=== PATIENT | female | born 1980 | race African-American/Black ===

== ENCOUNTER 2018-01-25 20:12 | Emergency (ER) | payer SELFPAY ==
[2018-01-25 21:07] LABS: #Basophils 0.1 thou/uL (0.0-0.2); #Eosinphils 0.2 thou/uL (0.0-0.7); #Lymphocytes 2.4 thou/uL (1.20-3.40); #Monocytes 0.9 thou/uL (0.11-0.59); #Neutrophils 3.7 thou/uL (1.40-6.50); %Basophils 1.4 % (0.0-1.0); %Eosinophils 2.8 % (0.0-10.0); %Lymphocytes 33.1 % (21.0-51.0); %Monocytes 12.2 % (0.0-10.0); %Neutrophils 50.5 % (42.0-75.0); Hemoglobin 9.2 g/dL (12.0-16.0); Hypochromia SLIGHT = 6-15 cells (100X) (0-5/hpf); MDiff Complete? YES; Mean Corpuscular HGB CONC 31.3 g/dL (32.0-36.0); Mean Corpuscular Hemoglobin 17.7 pg (27.0-31.0); Mean Corpuscular Volume 56.5 fL (78.0-98.0); Mean Platelet Volume 5.4 fL (7.4-10.4); Microcytosis MODERATE=15-30 cells (100X) (0-5/hpf); PLT Morphology Comment Appears Increased; Platelet Count 443 thou/uL (130-400); RBC Distribution Width 16.8 % (11.5-14.5); Red Blood Cell (RBC) Count 5.18 mill/uL (4.20-5.40); White Blood Cell (WBC) Count 7.3 thou/uL (4.8-10.8)
== END 2018-01-26 01:04 | disposition home or self-care (01) ==
LOC: ERS 20:12
DX: D50.9 Iron deficiency anemia, unspecified (principal); E03.9 Hypothyroidism, unspecified; D57.3 Sickle-cell trait
CPT/HCPCS: 36415; 85025; 99284

== ENCOUNTER 2018-07-30 07:02 | Outpatient (CLI) | payer MEDICAID ==
--- NOTE | 2018-07-30 08:26 | ULT ---
PELVIC SONOGRAM TRANSABDOMINAL AND TRANSVAGINAL IMAGING WITH DUPLEX EVALUATION: HISTORY: Pelvis pain and bleeding. Fibroid disease. FINDINGS: The urinary bladder is incompletely distended. Uterus has a heterogeneous echotexture and measures u p to 10.0 cm. Heterogeneous hypoechoic myometrial mass at the fundus is 4.0 x 2.2 cm greatest diamet ers. Endometrium is 1.4 cm. No free fluid. Right ovary contains a cyst up to 3.4 cm. The ovary is overall 5.2 cm. The left ovary is 4.2 cm wit h follicles. Good color and spectral Doppler flow within each ovary. IMPRESSSION: Fundal fibroid 4.0 cm. Right ovarian cyst 3.4 cm. Thickened endometrium 1.4 cm. POS: [facility]
== END 2018-07-30 07:03 | disposition home or self-care (01) ==
LOC: BICULT 07:02
PROVIDERS: ATTEND Nurse Practitioner
DX: D25.9 Leiomyoma of uterus, unspecified (principal); N83.201 Unspecified ovarian cyst, right side; R93.89 Abnormal findings on diagnostic imaging of other specified body structures
CPT/HCPCS: 76856

== ENCOUNTER 2018-08-28 16:38 | Emergency (ER) | payer MEDICAID, SELFPAY ==
[2018-08-28 17:04] LABS: #Basophils 0.1 thou/uL (0.0-0.2); #Eosinphils 0.1 thou/uL (0.0-0.7); #Lymphocytes 2.3 thou/uL (1.20-3.40); #Monocytes 0.8 thou/uL (0.11-0.59); #Neutrophils 3.8 thou/uL (1.40-6.50); %Basophils 1.4 % (0.0-1.0); %Lymphocytes 32.2 % (21.0-51.0); %Monocytes 11.2 % (0.0-10.0); %Neutrophils 53.1 % (42.0-75.0); Hemoglobin 9.6 g/dL (12.0-16.0); Mean Corpuscular HGB CONC 30.7 g/dL (32.0-36.0); Mean Corpuscular Hemoglobin 19.1 pg (27.0-31.0); Mean Corpuscular Volume 62.1 fL (78.0-98.0); Mean Platelet Volume 10.7 fL (7.4-10.4); Platelet Count 438 thou/uL (130-400); RBC Distribution Width 15.8 % (11.5-14.5); Red Blood Cell (RBC) Count 5.01 mill/uL (4.20-5.40); White Blood Cell (WBC) Count 7.1 thou/uL (4.8-10.8)
[2018-08-28 17:20] LABS: Anisocytosis SLIGHT = 6-15 cells (100X) (0-5/hpf); Hypochromia SLIGHT = 6-15 cells (100X) (0-5/hpf); Large Platelets SLIGHT; MDiff Complete? YES; Microcytosis SLIGHT = 6-15 cells (100X) (0-5/hpf); Ovalocytes SLIGHT = 2-5 cells (100X) (0-1/hpf); Platelet Morphology Comment Appears Increased; Poikilocytosis SLIGHT = 6-15 cells (100X) (0-5/hpf); Polychromasia SLIGHT = 2-3 cells (100X) (0-2/hpf); Reflex for Review?? YES; Target Cells SLIGHT = 2-5 cells (100X) (0-1/hpf)
[2018-08-28 17:25] LABS: ALT (SGPT) Less than 7 U/L (8-55); AST (SGOT) 12 U/L (5-34); Albumin 4.2 g/dL (3.5-5.0); Alkaline Phosphatase 86 U/L (40-150); Anion Gap 12 mmol/L (10-20); BUN (Urea Nitrogen) 12 mg/dL (7.0-18.7); Bilirubin, Total 0.3 mg/dL (0.2-1.2); CK (CPK) 98 U/L (29-168); Calc. Creatinine Clearance 0 mL/min (70-130); Calcium 9.3 mg/dL (7.8-10.44); Carbon Dioxide 23 mmol/L (22-29); Chloride 106 mmol/L (98-107); Estimated GFR-MDRD 75; Globulin 3.8 g/dL (2.4-3.5); Glucose 87 mg/dL (70-105); Potassium 3.8 mmol/L (3.5-5.1); Sodium 137 mmol/L (136-145)
--- NOTE | 2018-08-28 17:27 | RAD ---
PORTABLE CHEST 08/28/18 PROVIDED CLINICAL HISTORY: Chest pain. FINDINGS: Comparison 05/04/15. The cardiac silhouette appears enlarged, which may be at least partially on the basis of portable mario hnique. No focal consolidation, pleural fluid, or pneumothorax apparent. IMPRESSION: No evidence for an acute cardiopulmonary process. POS: [facility]
[2018-08-28] MEDS ORDERED: Acetaminophen 500 MG TAB ONE (17:47)
[2018-08-28 18:11] LABS: BHCG - Serum Negative (NEGATIVE); Pregs Control Background? CLEAR/WHITE (CLR/WHITE); Pregs Control Bar Appear? YES (CONTROL BAR)
== END 2018-08-28 18:00 | disposition home or self-care (01) ==
LOC: ERS 16:38
DX: R07.9 Chest pain, unspecified (principal); E03.9 Hypothyroidism, unspecified; D57.00 Hb-SS disease with crisis, unspecified; D64.9 Anemia, unspecified; Z79.899 Other long term (current) drug therapy
CPT/HCPCS: 36415; 71045; 80053; 82550; 84484; 84703; 85025; 85060; 93005

== ENCOUNTER 2019-04-09 16:03 | Emergency (ER) | payer SELFPAY ==
[2019-04-09 18:02] LABS: #Basophils 0.1 thou/uL (0.0-0.2); #Eosinphils 0.1 thou/uL (0.0-0.7); #Lymphocytes 2.7 thou/uL (1.20-3.40); #Monocytes 0.6 thou/uL (0.11-0.59); #Neutrophils 3.3 thou/uL (1.40-6.50); %Eosinophils 1.6 % (0.0-10.0); %Lymphocytes 40.1 % (21.0-51.0); %Monocytes 8.6 % (0.0-10.0); %Neutrophils 47.7 % (42.0-75.0); Hemoglobin 7.4 g/dL (12.0-16.0); Mean Corpuscular HGB CONC 30.6 g/dL (32.0-36.0); Mean Corpuscular Hemoglobin 16.1 pg (27.0-31.0); Mean Corpuscular Volume 52.5 fL (78.0-98.0); Mean Platelet Volume 5.3 fL (7.4-10.4); Platelet Count 550 thou/uL (130-400); RBC Distribution Width 16.7 % (11.5-14.5); Red Blood Cell (RBC) Count 4.57 mill/uL (4.20-5.40); White Blood Cell (WBC) Count 6.8 thou/uL (4.8-10.8)
[2019-04-09 18:19] LABS: Anisocytosis SLIGHT = 6-15 cells (100X) (0-5/hpf); Hypochromia MODERATE=16-30 cells (100X) (0-5/hpf); Large Platelets SLIGHT; MDiff Complete? YES; Macrocytosis SLIGHT = 6-15 cells (100X) (0-5/hpf); Microcytosis MODERATE=15-30 cells (100X) (0-5/hpf); Ovalocytes SLIGHT = 2-5 cells (100X) (0-1/hpf); Platelet Morphology Comment Appears Increased; Poikilocytosis SLIGHT = 6-15 cells (100X) (0-5/hpf); Reflex for Review?? NO; Schistocytes SLIGHT = 2-5 cells (100X) (0-1/hpf); Spherocytes SLIGHT = 1-5 cells (100X) (None Seen); Target Cells SLIGHT = 2-5 cells (100X) (0-1/hpf)
== END 2019-04-09 21:30 | disposition home or self-care (01) ==
LOC: ERS 16:03
DX: N94.6 Dysmenorrhea, unspecified (principal); D57.00 Hb-SS disease with crisis, unspecified; D64.9 Anemia, unspecified; E03.9 Hypothyroidism, unspecified; Z79.899 Other long term (current) drug therapy
CPT/HCPCS: 36430; 85025; 86850; 86900; 86901; 99284; P9016

== ENCOUNTER 2019-08-08 13:12 | Outpatient (CLI) | payer OTHER ==
[2019-08-08 17:09] LABS: Hemoglobin 8.8 g/dL (12.0-16.0); Mean Corpuscular HGB CONC 30.9 g/dL (32.0-36.0); Mean Corpuscular Hemoglobin 18.1 pg (27.0-31.0); Mean Corpuscular Volume 58.4 fL (78.0-98.0); Mean Platelet Volume 5.7 fL (7.4-10.4); Platelet Count 444 thou/uL (130-400); RBC Distribution Width 17.6 % (11.5-14.5); Red Blood Cell (RBC) Count 4.88 mill/uL (4.20-5.40); White Blood Cell (WBC) Count 7.1 thou/uL (4.8-10.8)
== END 2019-08-08 13:13 | disposition home or self-care (01) ==
LOC: LABBT 13:12
PROVIDERS: ATTEND Obstetrics & Gynecology
DX: Z01.812 Encounter for preprocedural laboratory examination (principal); D25.9 Leiomyoma of uterus, unspecified; D64.9 Anemia, unspecified; N92.0 Excessive and frequent menstruation with regular cycle
CPT/HCPCS: 85027; 86850; 86900; 86901

== ENCOUNTER 2019-08-08 16:30 | Inpatient (IN) | payer OTHER ==
[2019-08-08 15:54] VITALS: BMI 27.6
--- NOTE | 2019-08-12 21:27 | HP ---
REASON FOR ADMISSION: Menorrhagia, heavy periods, anemia, fibroids with intracavitary fibroids. SCHEDULED PROCEDURE: Total laparoscopic hysterectomy, bilateral salpingectomy. HISTORY OF PRESENT ILLNESS: Ms. Holland is 38 years old. She is a long history of menorrhagia and anemia, unresponsive to medical management with progestins. She has had 2 previous spontaneous vaginal deliveries and a negative Pap smear. She is status post bilateral tubal ligation. PAST MEDICAL HISTORY: Anemia and menorrhagia. PAST SURGICAL HISTORY: Cholecystectomy and BTL. ALLERGIES: NONE. MEDICATIONS: 1. Iron. 2. Naprosyn. 3. Medroxyprogesterone. SOCIAL HISTORY: Denies tobacco, alcohol, or IV drug abuse. FAMILY HISTORY: Noncontributory. REVIEW OF SYSTEMS: Noncontributory. PHYSICAL EXAMINATION: GENERAL: Black female. VITAL SIGNS: 5 foot 9 inches, 170, BMI 25, blood pressure 122/78, pulse 69, respirations 18. HEENT: Within normal limits. LUNGS: Clear to auscultation bilaterally. HEART: Regular rate and rhythm. BREASTS: Without masses bilaterally. ABDOMEN: Soft, nontender. No rebound or guarding. GENITOURINARY: Vulva without lesions. Vagina without discharge. Cervix is parous. Uterus, anteverted, smooth, 8-week size. Adnexa, no masses. EXTREMITIES: Without clubbing, cyanosis, or edema. DIAGNOSTIC STUDIES: Pap smear at [facility] was negative. Ultrasound revealed a uterus measuring 9.2 x 6.1 x 4.5 cm with a 150 mL uterine volume mass appearing to be a fibroid measuring 1.6 cm in greatest diameter as noted, normal appearing right and left adnexa was noted. IMPRESSION: Menorrhagia with intracavitary fibroid or polyp, unresponsive to medical therapy. The patient desires definitive surgical management. PLAN: Total laparoscopic hysterectomy, bilateral salpingectomy, [employer] robot assist with appropriate antibiotic and DVT prophylaxis. Job ID: [id number]
[2019-08-13] MEDS ORDERED: Famotidine/PF 20 mg/2ml Vial ONE (06:12)
[2019-08-13] MEDS ORDERED: Gabapentin 300 MG CAP ONE (06:12)
[2019-08-13] MEDS ORDERED: CeleCOXIB 100 MG CAP ONE (06:13)
[2019-08-13] MEDS ORDERED: Lidocaine 1% w/Epinephrine 1:100K 20 ML VIAL ONE (06:35)
[2019-08-13] MEDS ORDERED: Bupivacaine PF 0.5% 30 ML VIAL ONE (06:35)
[2019-08-13] MEDS ORDERED: HYDROmorphone 2 MG/ML VIAL ONE (06:37)
[2019-08-13] MEDS ORDERED: Fentanyl 100 MCG/2 ML VIAL ONE ×3 (06:37→10:09)
[2019-08-13] MEDS ORDERED: HYDROmorphone 2 MG/ML VIAL SLOW IVP PRN (08:46)
[2019-08-13] MEDS ORDERED: Meperidine HCl/PF 25 MG/ML VIAL SLOW IVP PRN (08:46)
[2019-08-13] MEDS ORDERED: Promethazine HCl 25 MG/ML VIAL SLOW IVP PRN (08:46)
[2019-08-13] MEDS ORDERED: Simethicone Chewable 80 MG TAB PO PRN (09:14)
[2019-08-13] MEDS ORDERED: diphenhydrAMINE 25 MG CAP PO PRN (09:14)
[2019-08-13] MEDS ORDERED: Bisacodyl 10 MG SUPP PR PRN (09:14)
[2019-08-13] MEDS ORDERED: Zolpidem Tartrate 5 MG TAB PO PRN (09:14)
[2019-08-13] MEDS ORDERED: Ondansetron PF 4 MG/2 ML Vial IVP PRN (09:14)
[2019-08-13] MEDS ORDERED: Promethazine HCl 25 MG/ML VIAL IM PRN (09:14)
[2019-08-13] MEDS ORDERED: Morphine 4 MG/ML VIAL SLOW IVP PRN (09:14)
[2019-08-13] MEDS ORDERED: HYDROcodone/Acetaminophen 5/325 mg Tablet PO PRN (09:14)
[2019-08-13] MEDS ORDERED: Ondansetron PF 4 MG/2 ML Vial ONE (10:54)
[2019-08-13] MEDS ORDERED: Lidocaine 1% PF 5 ML VIAL ONE (10:54)
[2019-08-13] MEDS ORDERED: Dexamethasone 20 MG/5 ML VIAL ONE (10:54)
[2019-08-13] MEDS ORDERED: PROPOFOL 200 MG/20 ML VIAL ONE (10:54)
[2019-08-13] MEDS ORDERED: Rocuronium Bromide 10 MG/ML (10ML VIAL) ONE (10:54)
[2019-08-13] MEDS ORDERED: Glycopyrrolate 0.2 MG/ML 5 ML SYRINGE ONE (10:54)
[2019-08-13] MEDS: Ketorolac Tromethamine 30 MG/ML VIAL IVP SCH ×2 (12:26→17:45)
[2019-08-13] MEDS: Sodium Chloride 0.9% 1,000 ML IV SCH ×2 (12:27→21:40)
[2019-08-13] MEDS: HYDROcodone/Acetaminophen 5/325 mg Tablet PO PRN ×2 (15:51→19:55)
--- NOTE | 2019-08-13 19:23 | OP ---
DATE OF PROCEDURE: 08/13/2019 PREOPERATIVE DIAGNOSES: Menorrhagia, anemia, with intracavitary polyp or fibroids. POSTOPERATIVE DIAGNOSES: Menorrhagia, anemia, with intracavitary polyp or fibroids. PROCEDURES PERFORMED: Total laparoscopic hysterectomy, bilateral salpingectomy. IT SOFTWARE DEVELOPER: Odilia Low PA-C ANESTHESIA: General endotracheal. ESTIMATED BLOOD LOSS: Less than 10 mL. COMPLICATIONS: None. OPERATIVE FINDINGS: 1. Approximately 10-week size uterus. 2. Normal-appearing tubes bilaterally. 3. Hemostasis, clear urine. COUNTS: Correct at the end of the procedure. DISPOSITION: Recovery room in good condition. DESCRIPTION OF PROCEDURE: After obtaining appropriate informed consent, the patient was taken to the operating room, where a general endotracheal anesthesia was achieved without difficulty. The patient was prepped and draped in dorsal lithotomy in Олег stirrups. A weighted speculum was placed in vagina. Cervix was identified and grasped with single-toothed tenaculum. NAT manipulator was placed inside with 8 cm pattern perforating machine operator and 3.5 cm vaginal part time receptionist. Mcmillan catheter was placed. Speculum and tenaculum were removed. Mail Messenger changed his gloves, turned attention to abdominal portion of the procedure. A 5 mL of Marcaine was injected below the umbilicus. A 12 mm skin incision was made. Veress needle was placed without abdominal cavity. Insufflation was carried out with max pressure of 15. A 12 mm trocar was placed. Confirmation entry into the peritoneal cavity without trauma to the underlying viscera was noted. [employer] robot ports were placed bilaterally and an assistant cook port in the right upper quadrant. The patient was placed in steep Trendelenburg and da Kodak robot was docked with monopolar scissors in the right and bipolar fenestrated forceps in the left. Findings as noted in the operative findings were noted. Uterus was mobilized. Left fallopian tube was coagulated across the mesosalpinx, excised, and removed. The utero-ovarian, broad, and round were coagulated and transected on the left, taken down to the level of the internal cervical os, where the vesicouterine peritoneum was incised sharply, dissected off the cervix and upper vagina. Attention was turned to the right, where identical procedure was carried out. Once the level of the vesicouterine peritoneal fold was reached, nearing the left-sided procedure, the bladder was completely dissected off the cervix and upper vagina. The bladder was backfilled and confirmation of the bladder to be completely off the cervix and upper vagina was noted. Skeletonization of the uterine vessels was carried out bilaterally. These were coagulated and transected. The vagina was entered posteriorly at 6 o'clock and extended from 6 to 9, 6 to 9, 9 to 12, and 3 to 12, amputating the specimen, pulled into the vagina to maintain pneumoperitoneum. Suction irrigation was carried out. All pedicles were noted to be dry. The vagina was closed using running continuous 2-0 PDS Stratafix in a running continuous manner from right to left and then back to right in a 2-layer closure fashion. Suction irrigation was carried out. Ureters were noted to be well lateral to the surgical field. Tisseel was applied to all surgical boyd. Good hemostasis was noted. The da Kodak instruments were removed. The da Kodak was undocked. Trocars were removed. Abdomen was desufflated of carbon dioxide. Fascia was reapproximated using 0 Vicryl on a UR6 needle. Skin was reapproximated x4 using 4-0 Monocryl and Dermabond. Sponge stick was applied to the vagina was noted to be dry. Clear urine was noted. The patient was awakened, extubated, taken to recovery room in good condition. Job ID: [id number]
[2019-08-13] MEDS: Calcium Carbonate 500 MG TAB PO SCH (19:55)
[2019-08-13] MEDS: Ferrous Sulfate 325 MG TAB PO SCH (19:55)
[2019-08-14] MEDS: Ketorolac Tromethamine 30 MG/ML VIAL IVP SCH (00:06)
[2019-08-14] MEDS: HYDROcodone/Acetaminophen 5/325 mg Tablet PO PRN ×4 (00:07→15:33)
[2019-08-14] MEDS: Sodium Chloride 0.9% 1,000 ML IV SCH ×2 (01:15→10:16)
[2019-08-14 06:04] LABS: Hemoglobin 7.7 g/dL (12.0-16.0); Mean Corpuscular Hemoglobin 17.6 pg (27.0-31.0); Mean Corpuscular Volume 58.6 fL (78.0-98.0); Mean Platelet Volume 5.6 fL (7.4-10.4); Platelet Count 420 thou/uL (130-400); RBC Distribution Width 16.8 % (11.5-14.5); Red Blood Cell (RBC) Count 4.37 mill/uL (4.20-5.40); White Blood Cell (WBC) Count 12.7 thou/uL (4.8-10.8)
[2019-08-14] MEDS: Ibuprofen 800 MG TAB PO SCH ×2 (06:10→15:32)
[2019-08-14] MEDS ORDERED: Iron Sucrose Complex 500 MG in Sodium Chloride 0.9% 250 ML 250 ML IVPB SCH (08:30)
[2019-08-14] MEDS ORDERED: Lactated Ringer's 500 ML IV SCH (08:30)
--- NOTE | 2019-08-14 09:04 | DIS ---
DATE OF ADMISSION: 08/13/2019 DATE OF DISCHARGE: 08/14/2019 SUMMARY OF HOSPITAL COURSE: The patient underwent a TLH, bilateral salpingectomy for menorrhagia and anemia. She had an estimated blood loss of less than 50 mL intraoperatively. Preoperative hematocrit was 28%, postoperative day #1 hematocrit was 25%. Normal platelet count was noted. PHYSICAL EXAMINATION: VITAL SIGNS: T-max 98.6, T now 98.5, pulse 73, respirations 20, and blood pressure 101/50. The patient is voiding well with greater than 2-1/2 L of urine output that was clear. LUNGS: Clear to ascultation bilaterally. HEART: Regular rate and rhythm. ABDOMEN: Soft and nontender. Bowel sounds positive in all 4 quadrants. Nondistended. Incisions intact x4 and her perineum is dry. EXTREMITIES: Without clubbing, cyanosis, or edema. The patient complains of mild dizziness with standing and headache; however, she does not demonstrate pulse tilt. IMPRESSION: Doing well postoperative day #1 with chronic anemia secondary to menorrhagia and chronic blood loss, likely with significant iron deficiency. Dizziness is likely contributed by her anemia as well as postoperative narcotic analgesics as use of more modern analgesics is restricted by formulary. PLAN: We will discontinue IV narcotics, utilize tramadol more significantly in the patient's postoperative pain control, and administer IV iron 500 mg x1. We will ambulate the patient and anticipate discharge after lunch today. The patient will have follow up at [facility] in 2 and 6 weeks. Job ID: [id number] [id number]
[2019-08-14] MEDS: Calcium Carbonate 500 MG TAB PO SCH (09:31)
[2019-08-14] MEDS: Ferrous Sulfate 325 MG TAB PO SCH (09:31)
[2019-08-14 11:32] VITALS: BP 107/58; TEMP 98.2
== END 2019-08-14 16:35 | disposition home or self-care (01) | DRG 743 ==
LOC: SURG A 08-13 05:44 → 3SE 08-13 12:05
PROVIDERS: ADMIT Obstetrics & Gynecology; ATTEND Obstetrics & Gynecology
PROC: 0UT94ZZ Resection of Uterus, Percutaneous Endoscopic Approach (ICD-10-PCS; principal; 2019-08-13)
PROC: 0UT24ZZ Resection of Bilateral Ovaries, Percutaneous Endoscopic Approach (ICD-10-PCS; 2019-08-13)
PROC: 0UT74ZZ Resection of Bilateral Fallopian Tubes, Percutaneous Endoscopic Approach (ICD-10-PCS; 2019-08-13)
DX: D25.9 Leiomyoma of uterus, unspecified (principal); D50.0 Iron deficiency anemia secondary to blood loss (chronic); N84.0 Polyp of corpus uteri; R42 Dizziness and giddiness; T40.605A Adverse effect of unspecified narcotics, initial encounter; Z79.899 Other long term (current) drug therapy; Z90.49 Acquired absence of other specified parts of digestive tract
CPT/HCPCS: 36415; 85027; 88307; J0690; J1100; J1170; J1756; J1885; J2001; J2405; J2704; J3010; J7050; S0020; S0028

== ENCOUNTER 2021-07-17 10:05 | Emergency (ER) | payer SELFPAY ==
[2021-07-17 11:04] LABS: #Basophils 0.1 thou/uL (0.0-0.2); #Eosinphils 0.1 thou/uL (0.0-0.7); #Lymphocytes 2.3 thou/uL (1.20-3.40); #Monocytes 0.5 thou/uL (0.11-0.59); #Neutrophils 3.5 thou/uL (1.40-6.50); %Basophils 1.4 % (0.0-1.0); %Eosinophils 2.3 % (0.0-10.0); %Lymphocytes 35.1 % (21.0-51.0); %Monocytes 7.6 % (0.0-10.0); %Neutrophils 53.6 % (42.0-75.0); Mean Corpuscular HGB CONC 33.6 g/dL (32.0-36.0); Mean Corpuscular Volume 83.3 fL (78.0-98.0); Mean Platelet Volume 7.4 fL (7.4-10.4); Platelet Count 305 thou/uL (130-400); RBC Distribution Width 11.4 % (11.5-14.5); White Blood Cell (WBC) Count 6.5 thou/uL (4.8-10.8)
[2021-07-17] MEDS ORDERED: ALPRAZolam 0.25 MG TAB ONE (11:07)
[2021-07-17 11:16] LABS: Anion Gap 11 mmol/L (10-20); BUN (Urea Nitrogen) 7 mg/dL (7.0-18.7); Carbon Dioxide 21 mmol/L (22-29); Chloride 107 mmol/L (98-107); Potassium 3.7 mmol/L (3.5-5.1); Sodium 135 mmol/L (136-145)
[2021-07-17 11:17] LABS: ALT (SGPT) 10 U/L (8-55); AST (SGOT) 11 U/L (5-34); Albumin 3.7 g/dL (3.5-5.0); Alkaline Phosphatase 76 U/L (40-110); Bilirubin, Total 0.9 mg/dL (0.2-1.2); Calc. Creatinine Clearance 0 mL/min (70-130); Calcium 9.2 mg/dL (7.8-10.44); Globulin 3.8 g/dL (2.4-3.5); Glucose 94 mg/dL (70-105); Protein, Total 7.5 g/dL (6.0-8.3)
[2021-07-17 11:27] LABS: BHCG - Serum Negative (NEGATIVE); Pregs Control Background? CLEAR/WHITE (CLR/WHITE); Pregs Control Bar Appear? YES (CONTROL BAR)
[2021-07-17 11:32] LABS: Magnesium 1.9 mg/dL (1.6-2.6)
== END 2021-07-17 11:55 | disposition home or self-care (01) ==
LOC: ERS 10:05
DX: F41.9 Anxiety disorder, unspecified (principal); E03.9 Hypothyroidism, unspecified; D64.9 Anemia, unspecified
CPT/HCPCS: 36415; 71046; 80053; 83735; 83880; 84484; 84703; 85025; 93005

== ENCOUNTER 2021-11-30 10:52 | Emergency (ER) | payer SELFPAY ==
[2021-11-30 11:34] LABS: #Basophils 0.1 thou/uL (0.0-0.2); #Eosinphils 0.2 thou/uL (0.0-0.7); #Lymphocytes 2.1 thou/uL (1.20-3.40); #Monocytes 0.6 thou/uL (0.11-0.59); #Neutrophils 3.5 thou/uL (1.40-6.50); %Basophils 1.1 % (0.0-1.0); %Eosinophils 2.5 % (0.0-10.0); %Monocytes 8.8 % (0.0-10.0); %Neutrophils 54.6 % (42.0-75.0); Hemoglobin 13.5 g/dL (12.0-16.0); Mean Corpuscular Hemoglobin 28.5 pg (27.0-31.0); Mean Corpuscular Volume 86.4 fL (78.0-98.0); Mean Platelet Volume 7.4 fL (7.4-10.4); Platelet Count 276 thou/uL (130-400); RBC Distribution Width 11.8 % (11.5-14.5); Red Blood Cell (RBC) Count 4.76 mill/uL (4.20-5.40); White Blood Cell (WBC) Count 6.3 thou/uL (4.8-10.8)
[2021-11-30 11:57] LABS: ALT (SGPT) 9 U/L (8-55); AST (SGOT) 12 U/L (5-34); Albumin 3.6 g/dL (3.5-5.0); Alkaline Phosphatase 72 U/L (40-110); Anion Gap 11 mmol/L (10-20); BUN (Urea Nitrogen) 9 mg/dL (7.0-18.7); Bilirubin, Total 1.1 mg/dL (0.2-1.2); Calc. Creatinine Clearance 0 mL/min (70-130); Carbon Dioxide 24 mmol/L (22-29); Chloride 107 mmol/L (98-107); Globulin 3.3 g/dL (2.4-3.5); Glucose 108 mg/dL (70-105); Lipase 14 U/L (8-78); Potassium 3.7 mmol/L (3.5-5.1); Protein, Total 6.9 g/dL (6.0-8.3); Sodium 138 mmol/L (136-145)
[2021-11-30] MEDS ORDERED: Acetaminophen 500 MG TAB ONE (12:01)
[2021-11-30] MEDS ORDERED: Lidocaine Viscous Sol 2% 15 ml UD Cup ONE (12:01)
[2021-11-30] MEDS ORDERED: Mag-Al 1200 mg/1200 mg/30 ML UDCUP ONE (12:01)
== END 2021-11-30 12:39 | disposition home or self-care (01) ==
LOC: ERS 10:52
DX: R07.9 Chest pain, unspecified (principal); E03.9 Hypothyroidism, unspecified; D64.9 Anemia, unspecified
CPT/HCPCS: 36415; 71045; 80053; 83690; 84484; 85025; 93005; 94760

== ENCOUNTER 2023-03-21 20:55 | Emergency (ER) | payer SELFPAY ==
[2023-03-21 21:32] LABS: #Basophils 0.1 thou/uL (0.0-0.2); #Eosinphils 0.2 thou/uL (0.0-0.7); #Monocytes 0.6 thou/uL (0.11-0.59); #Neutrophils 3.7 thou/uL (1.40-6.50); %Eosinophils 2.4 % (0.0-10.0); %Lymphocytes 37.5 % (21.0-51.0); %Monocytes 7.8 % (0.0-10.0); %Neutrophils 51.2 % (42.0-75.0); Hematocrit 37.8 % (36.0-47.0); Hemoglobin 12.9 g/dL (12.0-16.0); Mean Corpuscular HGB CONC 34.1 g/dL (32.0-36.0); Mean Corpuscular Hemoglobin 27.9 pg (27.0-31.0); Mean Corpuscular Volume 81.6 fl (78.0-98.0); Mean Platelet Volume 9.2 fL (7.4-10.4); Platelet Count 346 10x3/uL (130-400); RBC Distribution Width 12.7 % (11.5-14.5); Red Blood Cell (RBC) Count 4.63 mill/uL (4.20-5.40); White Blood Cell (WBC) Count 7.2 10x3/uL (4.8-10.8)
[2023-03-21 21:47] LABS: BHCG - Serum Negative (NEGATIVE); Pregs Control Background? CLEAR/WHITE (CLR/WHITE); Pregs Control Bar Appear? YES (CONTROL BAR)
[2023-03-21 21:57] LABS: ALT (SGPT) 10 U/L (8-55); AST (SGOT) 12 U/L (5-34); Albumin 3.9 g/dL (3.5-5.0); Alkaline Phosphatase 86 U/L (40-110); Anion Gap 10 mmol/L (10-20); BUN (Urea Nitrogen) 8 mg/dL (7.0-18.7); Bilirubin, Total 0.3 mg/dL (0.2-1.2); Calc. Creatinine Clearance 0 mL/min (70-130); Calcium 9.4 mg/dL (7.8-10.44); Carbon Dioxide 24 mmol/L (22-29); Chloride 105 mmol/L (98-107); Estimated GFR 79; Globulin 3.5 g/dL (2.4-3.5); Glucose 94 mg/dL (70-105); Potassium 3.8 mmol/L (3.5-5.1); Protein, Total 7.4 g/dL (6.0-8.3); Sodium 135 mmol/L (136-145)
[2023-03-21 21:58] LABS: Troponin I Less than 0.010 ng/mL (< 0.028)
[2023-03-21] MEDS ORDERED: Ketorolac Tromethamine 30 MG/ML VIAL ONE (22:14)
== END 2023-03-21 22:34 | disposition home or self-care (01) ==
LOC: ERS 20:55
DX: R07.89 Other chest pain (principal); E03.9 Hypothyroidism, unspecified
CPT/HCPCS: 36415; 71045; 80053; 84443; 84484; 84703; 85025; 93005; 96372; J1885

== ENCOUNTER 2023-06-04 19:11 | Emergency (ER) | payer SELFPAY ==
[2023-06-04 20:19] LABS: #Basophils 0.1 thou/uL (0.0-0.2); #Eosinphils 0.2 thou/uL (0.0-0.7); #Monocytes 0.8 thou/uL (0.11-0.59); #Neutrophils 1.7 thou/uL (1.40-6.50); %Basophils 1.3 % (0.0-1.0); %Eosinophils 4.9 % (0.0-10.0); %Monocytes 16.7 % (0.0-10.0); %Neutrophils 37.7 % (42.0-75.0); Hematocrit 40.3 % (36.0-47.0); Hemoglobin 13.6 g/dL (12.0-16.0); Mean Corpuscular HGB CONC 33.7 g/dL (32.0-36.0); Mean Corpuscular Hemoglobin 28.2 pg (27.0-31.0); Mean Corpuscular Volume 83.6 fl (78.0-98.0); Mean Platelet Volume 9.5 fL (7.4-10.4); Platelet Count 281 10x3/uL (130-400); RBC Distribution Width 12.9 % (11.5-14.5); Red Blood Cell (RBC) Count 4.82 mill/uL (4.20-5.40); White Blood Cell (WBC) Count 4.5 10x3/uL (4.8-10.8)
[2023-06-04] MEDS ORDERED: Aspirin Chewable 81 MG TAB ONE (20:25)
[2023-06-04] MEDS ORDERED: Acetaminophen 500 MG TAB ONE (20:25)
[2023-06-04 20:43] LABS: ALT (SGPT) 9 U/L (8-55); AST (SGOT) 13 U/L (5-34); Albumin 3.8 g/dL (3.5-5.0); Alkaline Phosphatase 84 U/L (40-110); Anion Gap 12 mmol/L (10-20); BUN (Urea Nitrogen) 8 mg/dL (7.0-18.7); Bilirubin, Total 0.3 mg/dL (0.2-1.2); Calc. Creatinine Clearance 0 mL/min (70-130); Calcium 8.6 mg/dL (7.8-10.44); Carbon Dioxide 22 mmol/L (22-29); Chloride 106 mmol/L (98-107); Estimated GFR 80; Globulin 3.7 g/dL (2.4-3.5); Glucose 93 mg/dL (70-105); Potassium 3.9 mmol/L (3.5-5.1); Protein, Total 7.5 g/dL (6.0-8.3); Sodium 136 mmol/L (136-145)
[2023-06-04 20:46] LABS: Troponin I Less than 0.010 ng/mL (< 0.028)
== END 2023-06-04 21:19 | disposition home or self-care (01) ==
LOC: ERS 19:11
DX: R07.9 Chest pain, unspecified (principal); E03.9 Hypothyroidism, unspecified
CPT/HCPCS: 36415; 71045; 80053; 84484; 85025; 93005